=== PATIENT | female | born 1940 | race Hispanic/Latino ===

== ENCOUNTER 2016-12-27 09:32 | Outpatient (CLI) | payer MEDICAID, MEDICARE ==
[2016-12-27 10:26] LABS: #Basophils 0.1 thou/uL (0.0-0.2); #Eosinphils 0.5 thou/uL (0.0-0.7); #Lymphocytes 3.3 thou/uL (1.20-3.40); #Monocytes 0.5 thou/uL (0.11-0.59); #Neutrophils 4.2 thou/uL (1.40-6.50); %Basophils 0.9 % (0.0-1.0); %Eosinophils 5.6 % (0.0-10.0); %Lymphocytes 38.3 % (21.0-51.0); %Monocytes 6.2 % (0.0-10.0); %Neutrophils 49.1 % (42.0-75.0); Hemoglobin 11.8 g/dL (12.0-16.0); Mean Corpuscular Hemoglobin 27.6 pg (27.0-31.0); Mean Corpuscular Volume 83.4 fl (81.0-99.0); Mean Platelet Volume 7.6 fL (7.4-10.4); Platelet Count 254 thou/uL (130-400); RBC Distribution Width 12.3 % (11.5-14.5); Red Blood Cell (RBC) Count 4.29 mill/uL (4.20-5.40); White Blood Cell (WBC) Count 8.6 thou/uL (4.8-10.8)
[2016-12-27 10:35] LABS: Hemoglobin A1c 12.2 % (4.0-6.0)
[2016-12-27 10:43] LABS: ALT (SGPT) 27 U/L (0-55); AST (SGOT) 20 U/L (5-34); Albumin 3.4 g/dL (3.4-4.8); Alkaline Phosphatase 99 U/L (40-150); Anion Gap 12 mmol/L (10-20); BUN (Urea Nitrogen) 21 mg/dL (9.8-20.1); Bilirubin, Total 0.4 mg/dL (0.2-1.2); Calc. Creatinine Clearance 0 mL/min (70-130); Calcium 9.4 mg/dL (7.8-10.44); Carbon Dioxide 29 mmol/L (23-31); Cardiac Risk 3.5 (Less than 4.5); Chloride 101 mmol/L (98-107); Cholesterol 135 mg/dL (< 200 Desired); Estimated GFR-MDRD 65; Globulin 3.5 g/dL (2.4-3.5); HDL Cholesterol 39 mg/dL (>60 Neg Risk); LDL Cholesterol, Calculated 79 mg/dL; Potassium 3.7 mmol/L (3.5-5.1); Protein, Total 6.9 g/dL (5.8-8.1); Sodium 138 mmol/L (136-145); Triglycerides 87 mg/dL (Less than 150)
[2016-12-27 11:07] LABS: Free T4 (Free Thyroxine) 1.15 ng/dL (0.70-1.48); Thyroid Stimulating Hormone 0.8573 uIU/mL (0.35-4.94)
[2016-12-27 11:29] LABS: Glucose 57 mg/dL (83-110)
== END 2016-12-27 09:33 | disposition home or self-care (01) ==
LOC: NAV SJFMSP 09:32
PROVIDERS: ATTEND Family Medicine
DX: E11.8 Type 2 diabetes mellitus with unspecified complications (principal); D64.9 Anemia, unspecified; E11.40 Type 2 diabetes mellitus with diabetic neuropathy, unspecified; J44.9 Chronic obstructive pulmonary disease, unspecified; I10 Essential (primary) hypertension
CPT/HCPCS: 80053; 80061; 83036; 84439; 84443; 85025

== ENCOUNTER 2017-03-12 17:16 | Inpatient (IN) | payer MEDICARE, MEDICAID ==
[2017-03-12] MEDS ORDERED: Dextrose 5% in Water 1,000 ML IV PRN (19:12)
[2017-03-12] MEDS ORDERED: Non-Formulary Item 1 EACH (Budesonide-Formoterol [Symbicort 160-4.5] 1 PUFF) INH PRN (21:32)
[2017-03-12] MEDS ORDERED: PROVENTIL INHALER 6.7 G (200 INHALATIONS) INH PRN (21:32)
[2017-03-12] MEDS ORDERED: Mometasone/Formoterol 60 PUFF AER INH PRN (21:41)
[2017-03-12] MEDS: HYDROcodone/Acetaminophen 7.5/325 mg Tablet PO PRN (22:09)
[2017-03-12] MEDS ORDERED: Melatonin 3 MG TAB PO SCH (22:15)
[2017-03-13] MEDS: Levothyroxine Sodium 150 MCG TAB PO SCH (05:26)
[2017-03-13] MEDS: HumaLOG 300 UNITS/3 ML VIAL SC PRN ×2 (05:31→11:47)
[2017-03-13 05:56] LABS: #Basophils 0.1 thou/uL (0.0-0.2); #Eosinphils 0.3 thou/uL (0.0-0.7); #Lymphocytes 2.7 thou/uL (1.20-3.40); #Monocytes 0.7 thou/uL (0.11-0.59); #Neutrophils 5.4 thou/uL (1.40-6.50); %Basophils 1.2 % (0.0-1.0); %Eosinophils 3.8 % (0.0-10.0); %Lymphocytes 29.7 % (21.0-51.0); %Monocytes 7.1 % (0.0-10.0); %Neutrophils 58.3 % (42.0-75.0); Hemoglobin 10.3 g/dL (12.0-16.0); Mean Corpuscular HGB CONC 31.2 g/dL (32.0-36.0); Mean Corpuscular Hemoglobin 25.9 pg (27.0-31.0); Mean Corpuscular Volume 82.8 fl (81.0-99.0); Platelet Count 296 thou/uL (130-400); RBC Distribution Width 12.3 % (11.5-14.5); Red Blood Cell (RBC) Count 3.98 mill/uL (4.20-5.40); White Blood Cell (WBC) Count 9.2 thou/uL (4.8-10.8)
[2017-03-13 05:59] LABS: Anion Gap 16 mmol/L (10-20); BUN (Urea Nitrogen) 16 mg/dL (9.8-20.1); Calc. Creatinine Clearance 100 mL/min (70-130); Calcium 9.4 mg/dL (7.8-10.44); Carbon Dioxide 28 mmol/L (23-31); Chloride 97 mmol/L (98-107); Estimated GFR-MDRD 58; Glucose 239 mg/dL (83-110); Potassium 4.7 mmol/L (3.5-5.1); Sodium 136 mmol/L (136-145)
[2017-03-13 06:07] LABS: Hemoglobin A1c 9.8 % (4.0-6.0)
[2017-03-13] MEDS: HYDROcodone/Acetaminophen 7.5/325 mg Tablet PO PRN ×3 (07:39→20:10)
[2017-03-13] MEDS: Escitalopram Oxalate 10 mg Tablet PO SCH (08:35)
[2017-03-13] MEDS: Famotidine 20 MG TAB PO SCH ×2 (08:35→20:12)
[2017-03-13] MEDS: Insulin NPH/Reg Insulin Hm 300 UNITS/3 ML VIAL SC SCH ×2 (08:35→19:38)
[2017-03-13] MEDS: Furosemide 40 MG TAB PO SCH (08:35)
[2017-03-13] MEDS: Lisinopril 5 MG TAB PO SCH (08:36)
[2017-03-13] MEDS: rOPINIRole HCl 0.5 MG TAB PO SCH ×2 (08:37→20:11)
[2017-03-13] MEDS: Pregabalin 100 MG CAP PO SCH ×2 (08:37→20:10)
[2017-03-13] MEDS ORDERED: Ferrous Sulfate 325 MG TAB PO SCH (09:00)
[2017-03-13] MEDS ORDERED: Carvedilol 25 MG TAB PO SCH (09:00)
[2017-03-13] MEDS ORDERED: Potassium Chloride 10 MEQ TAB PO SCH (09:00)
[2017-03-13] MEDS ORDERED: Milk Of Magnesia 30 ML UDCUP PO PRN (13:45)
[2017-03-13] MEDS ORDERED: Bisacodyl 10 MG SUPP PR PRN (13:46)
[2017-03-13] MEDS: Carvedilol 25 MG TAB PO SCH (16:51)
[2017-03-13] MEDS: Atorvastatin Calcium 10 MG TAB PO SCH (20:12)
[2017-03-13] MEDS: Melatonin 3 MG TAB PO SCH (20:12)
--- NOTE | 2017-03-13 21:30 | HP ---
DATE OF ADMISSION: 03/12/2017 CHIEF COMPLAINT: Right reverse shoulder arthroplasty for physical therapy. BRIEF HISTORY: This is a 77-year-old overweight female who was admitted to [facility] for a right reverse shoulder arthroplasty. She underwent a surgical procedure on 03/06/2017 t his was due to rotator cuff tear arthropathy. Procedure went off well. She apparently did have an episode of confusion and slurred speech and she was evaluated. She was noticed to have a right lowe r lobe pneumonia on a CT scan of her chest, the brain CT showed areas of gliosis of the cerebral hem isphere, age indeterminate. They recommended an MRI which I do not see done. Carotid Doppler shows no significant stenosis. Echocardiogram report is pending. She has been transferred here for cont inued therapy. Currently, she denies any complaints. She denies any chest pain or shortness of barbi ath. She is on nectar thick liquids. PAST MEDICAL HISTORY: 1. Hypertension. 2. Dyslipidemia. 3. Hypothyroidism. 4. Diabetes mellitus type 2. 5. Morbid obesity. 6. Degenerative joint disease. 7. Deconditioning. PAST SURGICAL HISTORY: 1. Lumbar spine surgery. 2. Bilateral hand surgery. 3. Thyroidectomy. 4. Recent right reverse shoulder arthroplasty. ALLERGIES: CODEINE. CURRENT MEDICATIONS: She has been admitted here on the following medications: Tylenol 500 mg q.6 h ours p.r.n., Dequincy 7.5/325 1-2 tablets q.6 hours p.r.n., Elavil 100 mg at night, Norvasc 5 mg b.i.d. , aspirin 81 daily, Lipitor 10 daily, carvedilol 25 b.i.d. Vitamin D3 5000 international units daily , Lexapro 10 mg daily, Pepcid 20 b.i.d., Lasix 40 mg daily, and 70/30 insulin 46 units subcutaneousl y b.i.d., Levaquin 750 mg daily, Levoxyl 150 mcg daily, lisinopril 2.5 mg daily, melatonin 9 mg christina y, Dulera 1 puff b.i.d., potassium 10 mEq daily, Pregabalin 100 mg b.i.d., Requip 0.5 mg b.i.d. ALLERGIES: CODEINE. FAMILY HISTORY: Noncontributory. PSYCHOSOCIAL HISTORY: No documented tobacco, alcohol or IV drug abuse. REVIEW OF SYSTEMS: Cardiovascular: Denies any chest pain, shortness of breath, palpitations, parox ysmal nocturnal dyspnea, orthopnea, pedal edema. Respiratory: Denies any chronic cough, expectorat ion or pleuritic type chest pain. Gastrointestinal: Denies any nausea, vomiting, diarrhea, constip ation, hematemesis, melena, hematochezia. Genitourinary: Denies any frequency, urgency, dysuria or hematuria. [employer]: No focal numbness, weakness, fainting spells. She has been having some speech, s wallowing issues and is on nectar thick liquid. She did have an episode consistent with TIA. We wi ll also schedule her for an MRI on an outpatient basis for the age indeterminate multiple areas of g liosis. PHYSICAL EXAMINATION: GENERAL: This is a pleasant 77-year-old overweight female resting comfortably in no acute distress. She responds appropriately to simple questions. She is able to recognize me. VITAL SIGNS: She is afebrile. Heart rate is 75, respirations 18, oxygen saturation is 93%, blood p ressure is 145/64. HEENT: Normocephalic, atraumatic. Pupils equal and reactive to light and accommodation. NECK: No JVD, thyromegaly, cervical adenopathy, throat exudates or carotid bruits. CARDIOVASCULAR: S1, S2, plus rate and rhythm regular. RESPIRATORY: Normal vesicular breath sounds heard in all lung joseph. ABDOMEN: Soft, obese, nontender. Bowel sounds heard in all quadrants. EXTREMITIES: Without cyanosis or clubbing. CENTRAL NERVOUS SYSTEM: Grossly nonfocal. LABORATORY VALUES: From this morning shows a white count of 9.2, H\T\H is 10.3 and 33. Sodium 136, potassium 4.7, BUN and creatinine 16 and 0.94, blood sugars are 151, 226 and 222, glycohemoglobin i s 9.8. IMPRESSION: 1. Status post right reverse shoulder arthroplasty. 2. Diabetes mellitus type 2, not well controlled. 3. Hypertension. 4. Dyslipidemia. 5. Hypothyroidism. 6. Morbid obesity. 7. Deconditioning. 8. Possible asthma. 9. Multiple areas of gliosis. PLAN: 1. Continue current medications. 2. A 1800 calorie heart healthy ADA diet. 3. Accu-Cheks with sliding scale coverage. 4. Deep venous thrombosis and stress ulcer prophylaxis. 5. Decubitus precautions. 6. Routine laboratory values. 7. Physical therapy. 8. Speech therapy. 9. No family at the bedside.
[2017-03-14] MEDS: Levothyroxine Sodium 150 MCG TAB PO SCH (05:16)
[2017-03-14] MEDS: HumaLOG 300 UNITS/3 ML VIAL SC PRN ×2 (05:20→12:21)
[2017-03-14] MEDS: HYDROcodone/Acetaminophen 7.5/325 mg Tablet PO PRN ×3 (05:22→15:07)
[2017-03-14] MEDS: Pregabalin 100 MG CAP PO SCH ×2 (09:29→21:15)
[2017-03-14] MEDS: rOPINIRole HCl 0.5 MG TAB PO SCH ×2 (09:31→21:15)
[2017-03-14] MEDS: Lisinopril 5 MG TAB PO SCH (09:32)
[2017-03-14] MEDS: Furosemide 40 MG TAB PO SCH (09:33)
[2017-03-14] MEDS: Potassium Chloride 10 MEQ TAB PO SCH (09:33)
[2017-03-14] MEDS: Ferrous Sulfate 325 MG TAB PO SCH (09:35)
[2017-03-14] MEDS: Escitalopram Oxalate 10 mg Tablet PO SCH (09:35)
[2017-03-14] MEDS: Famotidine 20 MG TAB PO SCH ×2 (09:35→21:13)
[2017-03-14] MEDS: Carvedilol 25 MG TAB PO SCH ×2 (09:35→17:46)
[2017-03-14] MEDS: Insulin NPH/Reg Insulin Hm 300 UNITS/3 ML VIAL SC SCH ×2 (09:36→21:14)
--- NOTE | 2017-03-14 13:32 | PRG ---
DATE OF SERVICE: 03/14/2017 SUBJECTIVE: Ms. Mandel is up in her chair. She denies any complaints. Tolerating therapy. She had a bowel movement. Discussed with nursing and no concerns. OBJECTIVE: VITAL SIGNS: She is afebrile, heart rate is 65, respiration is 18, oxygen saturation is 94%, blood pressure is 158/70. CARDIOVASCULAR: S1, S2 plus. RESPIRATORY: Normal vesicular breath sounds. ABDOMEN: Soft, nontender, obese. Bowel sounds heard in all quadrants. EXTREMITIES: Right arm in a sling. Trace edema. LABORATORY VALUES: Blood sugars are 222, 70, 106, 205 168. Hemoglobin is 9.8. IMPRESSION: 1. Status post right total shoulder arthroplasty. 2. Diabetes mellitus type 2. 3. Obesity. 4. Hypothyroidism. 5. Improving deconditioning. 6. Longstanding history of noncompliance. 7. Hypertension. 8. Dyslipidemia. PLAN: 1. Continue current medications. 2. 1800 calorie heart healthy diet. 3. DVT and stress ulcer prophylaxis. 4. Decubitus precautions. 5. Accu-Cheks with sliding scale coverage. 6. Shoulder with orthopedic precautions. 7. Therapy. 8. Routine laboratory values. 9. No family at the bedside.
[2017-03-14] MEDS: Atorvastatin Calcium 10 MG TAB PO SCH (21:13)
[2017-03-14] MEDS: Melatonin 3 MG TAB PO SCH (21:14)
[2017-03-15] MEDS ORDERED: Sodium Chloride 0.9% 10 ML ONE ×2 (02:24→02:37)
[2017-03-15] MEDS: Dextrose 50% Abboject 50 ML SYRINGE IVP PRN (02:26)
[2017-03-15 02:58] LABS: Glucose 58 mg/dL (83-110)
[2017-03-15] MEDS: Levothyroxine Sodium 150 MCG TAB PO SCH (05:15)
[2017-03-15] MEDS: Potassium Chloride 10 MEQ TAB PO SCH (08:00)
[2017-03-15] MEDS: Ferrous Sulfate 325 MG TAB PO SCH (08:00)
[2017-03-15] MEDS: Carvedilol 25 MG TAB PO SCH ×2 (08:00→17:45)
[2017-03-15] MEDS: Insulin NPH/Reg Insulin Hm 300 UNITS/3 ML VIAL SC SCH ×2 (09:55→21:01)
[2017-03-15] MEDS: Escitalopram Oxalate 10 mg Tablet PO SCH ×2 (09:56→12:11)
[2017-03-15] MEDS: Furosemide 40 MG TAB PO SCH (09:58)
[2017-03-15] MEDS: rOPINIRole HCl 0.5 MG TAB PO SCH ×2 (09:58→20:58)
[2017-03-15] MEDS: Famotidine 20 MG TAB PO SCH ×3 (09:58→20:59)
[2017-03-15] MEDS: Pregabalin 100 MG CAP PO SCH ×3 (10:00→21:01)
[2017-03-15] MEDS: Lisinopril 5 MG TAB PO SCH (10:00)
[2017-03-15] MEDS: HYDROcodone/Acetaminophen 7.5/325 mg Tablet PO PRN ×2 (11:43→22:12)
[2017-03-15] MEDS: HumaLOG 300 UNITS/3 ML VIAL SC PRN (11:56)
[2017-03-15] MEDS ORDERED: Escitalopram Oxalate 10 mg Tablet PO SCH (12:00)
[2017-03-15] MEDS ORDERED: Pregabalin 100 MG CAP PO SCH (12:00)
[2017-03-15] MEDS ORDERED: Famotidine 20 MG TAB PO SCH (12:00)
[2017-03-15] MEDS ORDERED: PROVENTIL INHALER 6.7 G (200 INHALATIONS) INH PRN (13:20)
--- NOTE | 2017-03-15 13:31 | PRG ---
DATE OF SERVICE: 03/15/2017 SUBJECTIVE: Ms. Mandel is doing well. Denies any complaints. She says that she was having some wheezing this morning. She was on Symbicort at home. She has Dulera ordered, but for some reason i t was ordered p.r.n., I will change it to scheduled. OBJECTIVE: VITAL SIGNS: She is afebrile, heart rate is 74, respirations 18, oxygen saturation 93%, blood press ure 144/65. CARDIOVASCULAR: S1, S2 plus. RESPIRATORY: Normal vesicular breath sounds. ABDOMEN: Soft, obese, nontender, bowel sounds heard in all quadrants. EXTREMITIES: Without cyanosis or clubbing. She did also have an episode of hypoglycemia and her NPH at night, has been decreased to 20. IMPRESSION: 1. Right shoulder arthroplasty. 2. Chronic obstructive pulmonary disease. 3. Obesity. 4. Diabetes mellitus. 5. Hypertension. 6. Dyslipidemia. 7. Hypothyroidism. PLAN: 1. Change Dulera to scheduled. 2. DuoNeb p.r.n. 3. Deep venous thrombosis and stress ulcer prophylaxis. 4. Decubitus precautions. 5. Continue therapy. 6. Monitor blood sugars with reduced dose of NPH at night. 7. Discussed with the patient in detail and all questions answered.
[2017-03-15 15:56] LABS: CKMB 1.8 ng/mL (0-6.6); Troponin I Less than 0.010 ng/mL (< 0.028)
--- NOTE | 2017-03-15 16:05 | RAD ---
SINGLE VIEW OF CHEST: Date: 03/15/17 COMPARISON: 03/06/07. HISTORY: Chest pain. FINDINGS: Single view of the chest shows an enlarged but stable cardiomediastinal silhouette. The patient is s tatus post right shoulder arthroplasty. There is no evidence of consolidation, mass, pneumothorax, o r pleural effusion. Degenerative changes are seen in the spine. IMPRESSION: No evidence of acute cardiopulmonary disease. POS: [facility]
[2017-03-15] MEDS ORDERED: Mometasone/Formoterol 60 PUFF AER INH SCH (18:45)
[2017-03-15] MEDS: Atorvastatin Calcium 10 MG TAB PO SCH (20:58)
[2017-03-15] MEDS: Melatonin 3 MG TAB PO SCH (20:58)
[2017-03-15 23:23] LABS: CKMB 1.6 ng/mL (0-6.6); Troponin I Less than 0.010 ng/mL (< 0.028)
[2017-03-16] MEDS: Mometasone/Formoterol 60 PUFF AER INH SCH ×3 (02:52→17:48)
[2017-03-16] MEDS: HYDROcodone/Acetaminophen 7.5/325 mg Tablet PO PRN ×2 (02:53→15:31)
[2017-03-16] MEDS: Levothyroxine Sodium 150 MCG TAB PO SCH (05:51)
[2017-03-16 06:25] LABS: CKMB 1.3 ng/mL (0-6.6); Troponin I Less than 0.010 ng/mL (< 0.028)
[2017-03-16] MEDS: Lisinopril 5 MG TAB PO SCH (08:20)
[2017-03-16] MEDS: Famotidine 20 MG TAB PO SCH ×2 (08:21→20:37)
[2017-03-16] MEDS: Escitalopram Oxalate 10 mg Tablet PO SCH (08:21)
[2017-03-16] MEDS: rOPINIRole HCl 0.5 MG TAB PO SCH ×2 (08:21→20:37)
[2017-03-16] MEDS: Furosemide 40 MG TAB PO SCH (08:22)
[2017-03-16] MEDS: Ferrous Sulfate 325 MG TAB PO SCH (08:22)
[2017-03-16] MEDS: Potassium Chloride 10 MEQ TAB PO SCH (08:22)
[2017-03-16] MEDS: Pregabalin 100 MG CAP PO SCH ×2 (08:22→20:38)
[2017-03-16] MEDS: Carvedilol 25 MG TAB PO SCH ×2 (08:22→17:48)
[2017-03-16] MEDS: Insulin NPH/Reg Insulin Hm 300 UNITS/3 ML VIAL SC SCH ×2 (08:24→20:39)
--- NOTE | 2017-03-16 12:23 | PRG ---
DATE OF SERVICE: 03/16/2017 SUBJECTIVE: Ms. Mandel is doing well. She did not have any low blood sugars last night. She did have an episode of chest pain when she was ambulating. Her EKG, chest x-ray and cardiac enzymes marshall ve been negative so far. The pain resolved instantaneously. She denies any other concerns. She wa s started on her routine long-acting beta agonist steroid inhalation for some reason it was ordered p.r.n. Currently, she denies any concerns or questions. OBJECTIVE: VITAL SIGNS: She is afebrile, heart rate is 66, respirations are 20, oxygen saturation is 93%, bloo d pressure 145/66. CARDIOVASCULAR: S1, S2 plus. RESPIRATORY: Normal vesicular breath sounds. ABDOMEN: Soft, obese, nontender, bowel sounds heard in all quadrants. EXTREMITIES: Without cyanosis or clubbing. The right arm is in a sling. LABORATORY VALUES: Blood sugars are 309, 102, 87, 86. Three sets of cardiac enzymes negative. Risa st x-ray is negative. IMPRESSION: 1. Atypical chest pain with negative workup. 2. Asthma, currently on routine steroid combo. 3. Diabetes mellitus type 2. 4. Hypertension. 5. Hypothyroidism. 6. Obesity. 7. Degenerative joint disease, status post right shoulder arthroplasty for rotator cuff injury. PLAN: 1. Continue physical therapy and OT with orthopedic restrictions. 2. Monitor blood sugar. 3. Breathing treatments as needed. Meter dose inhalation as needed. 4. Continue routine Dulera. 5. Accu-Cheks and sliding scale coverage. 6. Deep venous thrombosis and stress ulcer prophylaxis. 7. Decubitus precautions. 8. Dr. Weir nurse infection control this weekend.
[2017-03-16 15:12] LABS: CKMB 1.2 ng/mL (0-6.6); Troponin I Less than 0.010 ng/mL (< 0.028)
[2017-03-16] MEDS: Atorvastatin Calcium 10 MG TAB PO SCH (20:37)
[2017-03-16] MEDS: Melatonin 3 MG TAB PO SCH (20:37)
[2017-03-17] MEDS: Levothyroxine Sodium 150 MCG TAB PO SCH (05:38)
[2017-03-17] MEDS: Mometasone/Formoterol 60 PUFF AER INH SCH ×2 (05:38→18:06)
[2017-03-17] MEDS: Carvedilol 25 MG TAB PO SCH ×2 (08:38→17:06)
[2017-03-17] MEDS: Potassium Chloride 10 MEQ TAB PO SCH (08:38)
[2017-03-17] MEDS: Ferrous Sulfate 325 MG TAB PO SCH (08:38)
[2017-03-17] MEDS: Famotidine 20 MG TAB PO SCH ×2 (08:39→20:57)
[2017-03-17] MEDS: Escitalopram Oxalate 10 mg Tablet PO SCH (08:39)
[2017-03-17] MEDS: Insulin NPH/Reg Insulin Hm 300 UNITS/3 ML VIAL SC SCH ×2 (08:40→20:57)
[2017-03-17] MEDS: Furosemide 40 MG TAB PO SCH (08:40)
[2017-03-17] MEDS: Lisinopril 5 MG TAB PO SCH (08:43)
[2017-03-17] MEDS: Pregabalin 100 MG CAP PO SCH ×2 (08:44→20:56)
[2017-03-17] MEDS: rOPINIRole HCl 0.5 MG TAB PO SCH ×2 (08:45→20:56)
--- NOTE | 2017-03-17 10:43 | PRG ---
DATE OF SERVICE: 03/17/[address] Peterson Vu. SUBJECTIVE: The patient is a 77-year-old white female admitted to the skilled unit for rehabilitati on after a reversed right shoulder placement. She has done well with no pain in her shoulder at res t, but with inability to maintain ADLs and to transport as of yet. She is eating well with no short ness of breath or chest pain. For the last 24 hours, she did have atypical chest pain 2 days ago wi th no recurrence. OBJECTIVE: VITAL SIGNS: Shows her blood pressure today is 164/71, temperature 96, pulse 71, respirations 18, O 2 saturation is 95%. LUNGS: Clear. CARDIAC EXAMINATION: Shows regular rhythm. Accu-Cheks were labile, but fairly well improved going from 81-214. EXTREMITIES: Right shoulder shows no tenderness at rest and some tenderness upon movement cooperati ng with therapy. ASSESSMENT: Resolving right shoulder replacement, resolved atypical chest pain, stable asthma, no w heezing, stable diabetes, stable hypertension. PLAN: Continue PT, OT. Continue to monitor Accu-Cheks. Continue breathing treatments as needed. Continue to monitor for atypical chest pain. Continue DVT and stress ulcer prophylaxis. Continue u p in the chair as much as possible.
[2017-03-17] MEDS: HYDROcodone/Acetaminophen 7.5/325 mg Tablet PO PRN (10:56)
[2017-03-17] MEDS: HumaLOG 300 UNITS/3 ML VIAL SC PRN (11:36)
[2017-03-17] MEDS: Melatonin 3 MG TAB PO SCH (20:56)
[2017-03-17] MEDS: Atorvastatin Calcium 10 MG TAB PO SCH (20:56)
[2017-03-18] MEDS: HYDROcodone/Acetaminophen 7.5/325 mg Tablet PO PRN ×2 (00:55→08:46)
[2017-03-18] MEDS: Mometasone/Formoterol 60 PUFF AER INH SCH ×2 (05:40→20:45)
[2017-03-18] MEDS: Levothyroxine Sodium 150 MCG TAB PO SCH (05:40)
[2017-03-18] MEDS: Potassium Chloride 10 MEQ TAB PO SCH (08:42)
[2017-03-18] MEDS: Ferrous Sulfate 325 MG TAB PO SCH (08:42)
[2017-03-18] MEDS: Carvedilol 25 MG TAB PO SCH ×2 (08:42→20:45)
[2017-03-18] MEDS: Escitalopram Oxalate 10 mg Tablet PO SCH (08:43)
[2017-03-18] MEDS: Famotidine 20 MG TAB PO SCH ×2 (08:43→20:51)
[2017-03-18] MEDS: Furosemide 40 MG TAB PO SCH (08:43)
[2017-03-18] MEDS: Insulin NPH/Reg Insulin Hm 300 UNITS/3 ML VIAL SC SCH ×2 (08:44→20:53)
[2017-03-18] MEDS: Lisinopril 5 MG TAB PO SCH (08:44)
[2017-03-18] MEDS: Pregabalin 100 MG CAP PO SCH ×2 (08:45→20:52)
[2017-03-18] MEDS: rOPINIRole HCl 0.5 MG TAB PO SCH ×2 (08:46→20:52)
--- NOTE | 2017-03-18 09:19 | PRG ---
DATE OF SERVICE: 03/18/[address] Peterson Vu. SUBJECTIVE: The patient lying in bed, feels well with minimal pain in her shoulder, was up in chair several hours yesterday. She has had a brace on her shoulder off last night and then having good b owel movements, eating well. No shortness of breath. OBJECTIVE: Incision appeared to be clean and dry. Vital signs show blood pressure 150/67, pulse 73 , temperature 98, O2 sats 94%. Lungs are clear. Cardiac examination shows regular rhythm. ASSESSMENT: 1. Degenerative joint disease status post right shoulder arthroplasty. 2. Persistent asthma, controlled on steroid inhalers. 3. Type 2 diabetes with fair control with Accu-Cheks ranging from 79-230. 4. Hypertension, controlled to goal. PLAN: 1. Continue PT, OT while wearing splint and with restrictions. 2. Continue Accu-Cheks. 3. Continue routine steroid bronchodilator inhaler. 4. Continue DVT and stress ulcer prophylaxis.
[2017-03-18] MEDS: Melatonin 3 MG TAB PO SCH (20:51)
[2017-03-18] MEDS: Atorvastatin Calcium 10 MG TAB PO SCH (20:51)
[2017-03-19] MEDS: Levothyroxine Sodium 150 MCG TAB PO SCH (06:01)
[2017-03-19] MEDS: Mometasone/Formoterol 60 PUFF AER INH SCH ×2 (06:02→17:57)
[2017-03-19] MEDS: Carvedilol 25 MG TAB PO SCH ×2 (08:31→17:57)
[2017-03-19] MEDS: Lisinopril 5 MG TAB PO SCH (08:31)
[2017-03-19] MEDS: Escitalopram Oxalate 10 mg Tablet PO SCH (08:31)
[2017-03-19] MEDS: rOPINIRole HCl 0.5 MG TAB PO SCH ×2 (08:31→21:03)
[2017-03-19] MEDS: Ferrous Sulfate 325 MG TAB PO SCH (08:31)
[2017-03-19] MEDS: Furosemide 40 MG TAB PO SCH (08:32)
[2017-03-19] MEDS: Famotidine 20 MG TAB PO SCH ×2 (08:32→21:01)
[2017-03-19] MEDS: Potassium Chloride 10 MEQ TAB PO SCH (08:32)
[2017-03-19] MEDS: Pregabalin 100 MG CAP PO SCH ×2 (08:32→21:02)
[2017-03-19] MEDS: HYDROcodone/Acetaminophen 7.5/325 mg Tablet PO PRN ×2 (08:33→17:57)
[2017-03-19] MEDS: Insulin NPH/Reg Insulin Hm 300 UNITS/3 ML VIAL SC SCH ×2 (08:34→21:02)
[2017-03-19] MEDS: Dextrose 50% Abboject 50 ML SYRINGE IVP PRN (16:23)
--- NOTE | 2017-03-19 17:38 | PRG ---
DATE OF SERVICE: 03/19/2017 SUBJECTIVE: Ms. Mandel is doing well. Denies any complaints. Her right arm swelling is much imp roved. She is working with therapy. She denies any concerns or questions. She states that she has been taking creatinine level for more than 20 years and really does not want to change. She takes it to help with her anxiety. She does not want to try any other medicines. OBJECTIVE: VITAL SIGNS: She is afebrile. Heart rate is 73, respirations are 19 and blood pressure is 158/70. CARDIOVASCULAR SYSTEM: S1 and S2 plus. RESPIRATORY SYSTEM: Normal vesicular breath sounds. ABDOMEN: Soft, obese and nontender. Bowel sounds are heard in all quadrants. EXTREMITIES: Without cyanosis or clubbing. LABORATORY VALUES: Blood sugars are 79, 107, 147 and 195. She did have one low at 6:00 this evenin g at 46. IMPRESSION: 1. Diabetes mellitus type 2. 2. Hypertension. 3. Dyslipidemia. 4. Hypothyroidism. 5. Status post right shoulder arthroplasty. 6. Depression and anxiety. PLAN: 1. Continue physical therapy. 2. Monitor blood sugar. 3. Adjust medications. 4. 1800-calorie heart healthy diet. 5. Deep vein thrombosis and stress ulcer prophylaxis. 6. Decubitus precautions. 7. Routine laboratory values. 8. Physical therapy and occupational therapy.
[2017-03-19] MEDS: Atorvastatin Calcium 10 MG TAB PO SCH (21:01)
[2017-03-19] MEDS: Melatonin 3 MG TAB PO SCH (21:02)
[2017-03-20] MEDS: Mometasone/Formoterol 60 PUFF AER INH SCH ×2 (05:55→17:38)
[2017-03-20] MEDS: Levothyroxine Sodium 150 MCG TAB PO SCH (05:55)
[2017-03-20] MEDS: Famotidine 20 MG TAB PO SCH ×2 (08:44→21:09)
[2017-03-20] MEDS: Carvedilol 25 MG TAB PO SCH ×2 (08:48→17:38)
[2017-03-20] MEDS: Escitalopram Oxalate 10 mg Tablet PO SCH (08:48)
[2017-03-20] MEDS: Potassium Chloride 10 MEQ TAB PO SCH (08:48)
[2017-03-20] MEDS: Ferrous Sulfate 325 MG TAB PO SCH (08:48)
[2017-03-20] MEDS: Furosemide 40 MG TAB PO SCH (08:48)
[2017-03-20] MEDS: Lisinopril 5 MG TAB PO SCH (08:48)
[2017-03-20] MEDS: rOPINIRole HCl 0.5 MG TAB PO SCH ×2 (08:49→21:08)
[2017-03-20] MEDS: Pregabalin 100 MG CAP PO SCH ×2 (08:49→21:07)
[2017-03-20] MEDS: HYDROcodone/Acetaminophen 7.5/325 mg Tablet PO PRN ×2 (08:49→21:08)
[2017-03-20] MEDS: Insulin NPH/Reg Insulin Hm 300 UNITS/3 ML VIAL SC SCH ×2 (08:50→21:05)
[2017-03-20] MEDS ORDERED: Insulin NPH/Reg Insulin Hm 300 UNITS/3 ML VIAL SC SCH ×2 (09:00)
[2017-03-20] MEDS: Atorvastatin Calcium 10 MG TAB PO SCH (21:08)
[2017-03-20] MEDS: Melatonin 3 MG TAB PO SCH (21:09)
[2017-03-21] MEDS: Mometasone/Formoterol 60 PUFF AER INH SCH ×2 (05:56→17:54)
[2017-03-21] MEDS: Levothyroxine Sodium 150 MCG TAB PO SCH (05:56)
[2017-03-21] MEDS: HumaLOG 300 UNITS/3 ML VIAL SC PRN (05:58)
[2017-03-21] MEDS: Carvedilol 25 MG TAB PO SCH ×2 (08:13→16:58)
[2017-03-21] MEDS: Ferrous Sulfate 325 MG TAB PO SCH (08:14)
[2017-03-21] MEDS: Potassium Chloride 10 MEQ TAB PO SCH (08:14)
[2017-03-21] MEDS: Escitalopram Oxalate 10 mg Tablet PO SCH (08:15)
[2017-03-21] MEDS: Furosemide 40 MG TAB PO SCH (08:15)
[2017-03-21] MEDS: Famotidine 20 MG TAB PO SCH ×2 (08:15→20:50)
[2017-03-21] MEDS: Insulin NPH/Reg Insulin Hm 300 UNITS/3 ML VIAL SC SCH ×2 (08:16→20:56)
[2017-03-21] MEDS: Lisinopril 5 MG TAB PO SCH (08:16)
[2017-03-21] MEDS: Pregabalin 100 MG CAP PO SCH ×2 (08:17→20:52)
[2017-03-21] MEDS: rOPINIRole HCl 0.5 MG TAB PO SCH ×2 (08:18→20:51)
[2017-03-21] MEDS: HYDROcodone/Acetaminophen 7.5/325 mg Tablet PO PRN ×2 (17:57→23:57)
[2017-03-21] MEDS: Melatonin 3 MG TAB PO SCH (20:50)
[2017-03-21] MEDS: Atorvastatin Calcium 10 MG TAB PO SCH (20:51)
[2017-03-22] MEDS: Levothyroxine Sodium 150 MCG TAB PO SCH (05:27)
[2017-03-22] MEDS: Mometasone/Formoterol 60 PUFF AER INH SCH ×2 (05:30→18:11)
[2017-03-22 05:47] LABS: Anion Gap 14 mmol/L (10-20); BUN (Urea Nitrogen) 25 mg/dL (9.8-20.1); Calc. Creatinine Clearance 96 mL/min (70-130); Calcium 9.5 mg/dL (7.8-10.44); Carbon Dioxide 30 mmol/L (23-31); Chloride 101 mmol/L (98-107); Estimated GFR-MDRD 55; Glucose 132 mg/dL (83-110); Sodium 141 mmol/L (136-145)
[2017-03-22 05:51] LABS: #Basophils 0.1 thou/uL (0.0-0.2); #Eosinphils 0.6 thou/uL (0.0-0.7); #Lymphocytes 2.5 thou/uL (1.20-3.40); #Monocytes 0.7 thou/uL (0.11-0.59); #Neutrophils 4.3 thou/uL (1.40-6.50); %Basophils 1.2 % (0.0-1.0); %Eosinophils 6.9 % (0.0-10.0); %Monocytes 8.1 % (0.0-10.0); %Neutrophils 52.9 % (42.0-75.0); Mean Corpuscular HGB CONC 31.7 g/dL (32.0-36.0); Mean Corpuscular Hemoglobin 26.4 pg (27.0-31.0); Mean Corpuscular Volume 83.2 fl (81.0-99.0); Mean Platelet Volume 7.2 fL (7.4-10.4); Platelet Count 306 thou/uL (130-400); RBC Distribution Width 12.4 % (11.5-14.5); Red Blood Cell (RBC) Count 3.81 mill/uL (4.20-5.40); White Blood Cell (WBC) Count 8.2 thou/uL (4.8-10.8)
[2017-03-22] MEDS: Carvedilol 25 MG TAB PO SCH ×2 (08:18→16:29)
[2017-03-22] MEDS: Potassium Chloride 10 MEQ TAB PO SCH (08:18)
[2017-03-22] MEDS: Ferrous Sulfate 325 MG TAB PO SCH (08:18)
[2017-03-22] MEDS: Famotidine 20 MG TAB PO SCH ×2 (08:19→21:26)
[2017-03-22] MEDS: Escitalopram Oxalate 10 mg Tablet PO SCH (08:19)
[2017-03-22] MEDS: Lisinopril 5 MG TAB PO SCH (08:20)
[2017-03-22] MEDS: Insulin NPH/Reg Insulin Hm 300 UNITS/3 ML VIAL SC SCH ×2 (08:20→21:27)
[2017-03-22] MEDS: Furosemide 40 MG TAB PO SCH (08:20)
[2017-03-22] MEDS: Pregabalin 100 MG CAP PO SCH ×2 (08:21→21:26)
[2017-03-22] MEDS: rOPINIRole HCl 0.5 MG TAB PO SCH ×2 (08:21→21:25)
[2017-03-22] MEDS: traMADol HCl 50 MG TAB PO PRN (08:22)
[2017-03-22] MEDS: HumaLOG 300 UNITS/3 ML VIAL SC PRN ×2 (11:47→16:55)
[2017-03-22] MEDS: Atorvastatin Calcium 10 MG TAB PO SCH (21:25)
[2017-03-22] MEDS: Melatonin 3 MG TAB PO SCH (21:25)
[2017-03-23] MEDS: HYDROcodone/Acetaminophen 7.5/325 mg Tablet PO PRN ×2 (01:05→09:04)
[2017-03-23] MEDS: Levothyroxine Sodium 150 MCG TAB PO SCH (05:36)
[2017-03-23] MEDS: Mometasone/Formoterol 60 PUFF AER INH SCH ×2 (05:39→18:43)
[2017-03-23] MEDS: Ferrous Sulfate 325 MG TAB PO SCH (08:00)
[2017-03-23] MEDS: Carvedilol 25 MG TAB PO SCH ×2 (08:00→17:43)
[2017-03-23] MEDS: Potassium Chloride 10 MEQ TAB PO SCH (08:00)
[2017-03-23] MEDS: rOPINIRole HCl 0.5 MG TAB PO SCH ×2 (09:00→20:48)
[2017-03-23] MEDS: Escitalopram Oxalate 10 mg Tablet PO SCH (09:01)
[2017-03-23] MEDS: Furosemide 40 MG TAB PO SCH (09:01)
[2017-03-23] MEDS: Famotidine 20 MG TAB PO SCH ×2 (09:01→20:48)
[2017-03-23] MEDS: Lisinopril 5 MG TAB PO SCH (09:01)
[2017-03-23] MEDS: Pregabalin 100 MG CAP PO SCH ×2 (09:03→20:48)
[2017-03-23] MEDS: Insulin NPH/Reg Insulin Hm 300 UNITS/3 ML VIAL SC SCH ×2 (09:15→20:49)
[2017-03-23] MEDS: Melatonin 3 MG TAB PO SCH (20:47)
[2017-03-23] MEDS: Atorvastatin Calcium 10 MG TAB PO SCH (20:47)
[2017-03-24] MEDS: HYDROcodone/Acetaminophen 7.5/325 mg Tablet PO PRN ×3 (05:33→20:23)
[2017-03-24] MEDS: Levothyroxine Sodium 150 MCG TAB PO SCH (05:33)
[2017-03-24] MEDS: Mometasone/Formoterol 60 PUFF AER INH SCH ×2 (05:47→17:09)
[2017-03-24] MEDS: Carvedilol 25 MG TAB PO SCH ×2 (08:08→17:05)
[2017-03-24] MEDS: Ferrous Sulfate 325 MG TAB PO SCH (08:11)
[2017-03-24] MEDS: Potassium Chloride 10 MEQ TAB PO SCH (08:11)
[2017-03-24] MEDS: Lisinopril 5 MG TAB PO SCH (09:07)
[2017-03-24] MEDS: Insulin NPH/Reg Insulin Hm 300 UNITS/3 ML VIAL SC SCH ×2 (09:08→20:15)
[2017-03-24] MEDS: Escitalopram Oxalate 10 mg Tablet PO SCH (09:12)
[2017-03-24] MEDS: Famotidine 20 MG TAB PO SCH ×2 (09:12→20:18)
[2017-03-24] MEDS: rOPINIRole HCl 0.5 MG TAB PO SCH ×2 (09:12→20:19)
[2017-03-24] MEDS: Furosemide 40 MG TAB PO SCH (09:12)
[2017-03-24] MEDS: Pregabalin 100 MG CAP PO SCH ×2 (09:13→20:22)
[2017-03-24] MEDS: HumaLOG 300 UNITS/3 ML VIAL SC PRN ×2 (12:07→17:05)
[2017-03-24] MEDS: Atorvastatin Calcium 10 MG TAB PO SCH (20:19)
[2017-03-24] MEDS: Melatonin 3 MG TAB PO SCH (20:19)
[2017-03-25] MEDS: Mometasone/Formoterol 60 PUFF AER INH SCH ×2 (06:11→18:12)
[2017-03-25] MEDS: Levothyroxine Sodium 150 MCG TAB PO SCH (06:11)
[2017-03-25] MEDS: rOPINIRole HCl 0.5 MG TAB PO SCH ×2 (08:56→20:58)
[2017-03-25] MEDS: Carvedilol 25 MG TAB PO SCH ×2 (08:57→17:58)
[2017-03-25] MEDS: Famotidine 20 MG TAB PO SCH ×2 (08:57→20:55)
[2017-03-25] MEDS: Ferrous Sulfate 325 MG TAB PO SCH (08:57)
[2017-03-25] MEDS: Lisinopril 5 MG TAB PO SCH (08:57)
[2017-03-25] MEDS: Furosemide 40 MG TAB PO SCH (08:57)
[2017-03-25] MEDS: Escitalopram Oxalate 10 mg Tablet PO SCH (08:57)
[2017-03-25] MEDS: Potassium Chloride 10 MEQ TAB PO SCH (08:58)
[2017-03-25] MEDS: Pregabalin 100 MG CAP PO SCH ×2 (08:59→20:55)
[2017-03-25] MEDS: HYDROcodone/Acetaminophen 7.5/325 mg Tablet PO PRN ×2 (09:00→20:53)
[2017-03-25] MEDS: Insulin NPH/Reg Insulin Hm 300 UNITS/3 ML VIAL SC SCH ×2 (09:01→20:59)
[2017-03-25] MEDS: HumaLOG 300 UNITS/3 ML VIAL SC PRN (12:32)
[2017-03-25] MEDS: Melatonin 3 MG TAB PO SCH (20:54)
[2017-03-25] MEDS: Atorvastatin Calcium 10 MG TAB PO SCH (20:55)
[2017-03-26] MEDS: Levothyroxine Sodium 150 MCG TAB PO SCH (05:43)
[2017-03-26] MEDS: Mometasone/Formoterol 60 PUFF AER INH SCH ×2 (05:43→18:13)
[2017-03-26] MEDS: Carvedilol 25 MG TAB PO SCH ×2 (08:50→17:01)
[2017-03-26] MEDS: Ferrous Sulfate 325 MG TAB PO SCH (08:50)
[2017-03-26] MEDS: Famotidine 20 MG TAB PO SCH ×2 (08:51→20:08)
[2017-03-26] MEDS: Furosemide 40 MG TAB PO SCH (08:51)
[2017-03-26] MEDS: Potassium Chloride 10 MEQ TAB PO SCH (08:51)
[2017-03-26] MEDS: Escitalopram Oxalate 10 mg Tablet PO SCH (08:51)
[2017-03-26] MEDS: Pregabalin 100 MG CAP PO SCH ×2 (08:52→20:07)
[2017-03-26] MEDS: Lisinopril 5 MG TAB PO SCH (08:52)
[2017-03-26] MEDS: rOPINIRole HCl 0.5 MG TAB PO SCH ×2 (08:53→20:07)
[2017-03-26] MEDS: HYDROcodone/Acetaminophen 7.5/325 mg Tablet PO PRN ×2 (08:58→20:08)
[2017-03-26] MEDS: Insulin NPH/Reg Insulin Hm 300 UNITS/3 ML VIAL SC SCH ×2 (08:59→20:09)
[2017-03-26] MEDS: HumaLOG 300 UNITS/3 ML VIAL SC PRN (11:19)
[2017-03-26] MEDS: Melatonin 3 MG TAB PO SCH (20:07)
[2017-03-26] MEDS: Atorvastatin Calcium 10 MG TAB PO SCH (20:08)
[2017-03-27] MEDS: Mometasone/Formoterol 60 PUFF AER INH SCH ×2 (06:31→18:01)
[2017-03-27] MEDS: Levothyroxine Sodium 150 MCG TAB PO SCH (06:31)
[2017-03-27] MEDS: Ferrous Sulfate 325 MG TAB PO SCH (08:35)
[2017-03-27] MEDS: Carvedilol 25 MG TAB PO SCH ×2 (08:35→17:02)
[2017-03-27] MEDS: Potassium Chloride 10 MEQ TAB PO SCH (08:35)
[2017-03-27] MEDS: Famotidine 20 MG TAB PO SCH ×2 (08:36→20:15)
[2017-03-27] MEDS: Escitalopram Oxalate 10 mg Tablet PO SCH (08:36)
[2017-03-27] MEDS: Insulin NPH/Reg Insulin Hm 300 UNITS/3 ML VIAL SC SCH ×2 (08:37→20:15)
[2017-03-27] MEDS: Furosemide 40 MG TAB PO SCH (08:37)
[2017-03-27] MEDS: Pregabalin 100 MG CAP PO SCH ×2 (08:38→20:14)
[2017-03-27] MEDS: Lisinopril 5 MG TAB PO SCH (08:38)
[2017-03-27] MEDS: rOPINIRole HCl 0.5 MG TAB PO SCH ×2 (08:39→20:15)
[2017-03-27] MEDS: HYDROcodone/Acetaminophen 7.5/325 mg Tablet PO PRN ×2 (08:39→20:18)
[2017-03-27] MEDS: Melatonin 3 MG TAB PO SCH (20:14)
[2017-03-27] MEDS: Atorvastatin Calcium 10 MG TAB PO SCH (20:15)
[2017-03-28] MEDS: Levothyroxine Sodium 150 MCG TAB PO SCH (06:02)
[2017-03-28] MEDS: Mometasone/Formoterol 60 PUFF AER INH SCH ×2 (06:06→18:16)
[2017-03-28] MEDS: Ferrous Sulfate 325 MG TAB PO SCH (08:43)
[2017-03-28] MEDS: Famotidine 20 MG TAB PO SCH ×2 (08:43→20:56)
[2017-03-28] MEDS: Furosemide 40 MG TAB PO SCH (08:44)
[2017-03-28] MEDS: Escitalopram Oxalate 10 mg Tablet PO SCH (08:44)
[2017-03-28] MEDS: rOPINIRole HCl 0.5 MG TAB PO SCH ×2 (08:44→20:58)
[2017-03-28] MEDS: Potassium Chloride 10 MEQ TAB PO SCH (08:44)
[2017-03-28] MEDS: Carvedilol 25 MG TAB PO SCH ×2 (08:46→17:55)
[2017-03-28] MEDS: Pregabalin 100 MG CAP PO SCH ×2 (08:46→20:58)
[2017-03-28] MEDS: Lisinopril 5 MG TAB PO SCH (08:46)
[2017-03-28] MEDS: HYDROcodone/Acetaminophen 7.5/325 mg Tablet PO PRN ×2 (08:47→20:58)
[2017-03-28] MEDS: Insulin NPH/Reg Insulin Hm 300 UNITS/3 ML VIAL SC SCH ×2 (08:48→20:57)
[2017-03-28] MEDS: Atorvastatin Calcium 10 MG TAB PO SCH (20:56)
[2017-03-28] MEDS: Melatonin 3 MG TAB PO SCH (20:57)
[2017-03-29 05:09] LABS: #Eosinphils 0.3 thou/uL (0.0-0.7); #Lymphocytes 2.6 thou/uL (1.20-3.40); #Monocytes 0.7 thou/uL (0.11-0.59); #Neutrophils 4.1 thou/uL (1.40-6.50); %Basophils 0.5 % (0.0-1.0); %Eosinophils 4.5 % (0.0-10.0); %Lymphocytes 33.4 % (21.0-51.0); %Monocytes 8.7 % (0.0-10.0); %Neutrophils 52.9 % (42.0-75.0); Hemoglobin 9.9 g/dL (12.0-16.0); Mean Corpuscular HGB CONC 32.7 g/dL (32.0-36.0); Mean Corpuscular Hemoglobin 26.8 pg (27.0-31.0); Mean Corpuscular Volume 81.8 fl (81.0-99.0); Mean Platelet Volume 7.2 fL (7.4-10.4); Platelet Count 248 thou/uL (130-400); RBC Distribution Width 12.3 % (11.5-14.5); Red Blood Cell (RBC) Count 3.69 mill/uL (4.20-5.40); White Blood Cell (WBC) Count 7.7 thou/uL (4.8-10.8)
[2017-03-29] MEDS: Mometasone/Formoterol 60 PUFF AER INH SCH ×2 (05:21→17:58)
[2017-03-29] MEDS: Levothyroxine Sodium 150 MCG TAB PO SCH (05:21)
[2017-03-29 05:28] LABS: Anion Gap 12 mmol/L (10-20); BUN (Urea Nitrogen) 27 mg/dL (9.8-20.1); Calc. Creatinine Clearance 102 mL/min (70-130); Calcium 8.9 mg/dL (7.8-10.44); Carbon Dioxide 28 mmol/L (23-31); Chloride 103 mmol/L (98-107); Estimated GFR-MDRD 59; Glucose 180 mg/dL (83-110); Sodium 139 mmol/L (136-145)
[2017-03-29] MEDS: Famotidine 20 MG TAB PO SCH ×2 (08:13→20:30)
[2017-03-29] MEDS: Carvedilol 25 MG TAB PO SCH ×2 (08:14→17:58)
[2017-03-29] MEDS: Ferrous Sulfate 325 MG TAB PO SCH (08:14)
[2017-03-29] MEDS: Furosemide 40 MG TAB PO SCH (08:14)
[2017-03-29] MEDS: rOPINIRole HCl 0.5 MG TAB PO SCH ×2 (08:14→20:38)
[2017-03-29] MEDS: Lisinopril 5 MG TAB PO SCH (08:14)
[2017-03-29] MEDS: Potassium Chloride 10 MEQ TAB PO SCH (08:14)
[2017-03-29] MEDS: Escitalopram Oxalate 10 mg Tablet PO SCH (08:14)
[2017-03-29] MEDS: Pregabalin 100 MG CAP PO SCH ×2 (08:15→20:31)
[2017-03-29] MEDS: HYDROcodone/Acetaminophen 7.5/325 mg Tablet PO PRN ×2 (08:16→20:32)
[2017-03-29] MEDS: Insulin NPH/Reg Insulin Hm 300 UNITS/3 ML VIAL SC SCH ×2 (08:25→20:31)
[2017-03-29] MEDS: Atorvastatin Calcium 10 MG TAB PO SCH (20:30)
[2017-03-29] MEDS: Melatonin 3 MG TAB PO SCH (20:31)
[2017-03-30] MEDS: Levothyroxine Sodium 150 MCG TAB PO SCH (06:04)
[2017-03-30] MEDS: Mometasone/Formoterol 60 PUFF AER INH SCH ×2 (06:04→17:51)
[2017-03-30] MEDS: Potassium Chloride 10 MEQ TAB PO SCH (08:17)
[2017-03-30] MEDS: Carvedilol 25 MG TAB PO SCH ×2 (08:17→16:52)
[2017-03-30] MEDS: Ferrous Sulfate 325 MG TAB PO SCH (08:17)
[2017-03-30] MEDS: Famotidine 20 MG TAB PO SCH ×2 (08:20→20:56)
[2017-03-30] MEDS: Lisinopril 5 MG TAB PO SCH (08:20)
[2017-03-30] MEDS: Furosemide 40 MG TAB PO SCH (08:20)
[2017-03-30] MEDS: Insulin NPH/Reg Insulin Hm 300 UNITS/3 ML VIAL SC SCH ×2 (08:20→20:58)
[2017-03-30] MEDS: Escitalopram Oxalate 10 mg Tablet PO SCH (08:20)
[2017-03-30] MEDS: Pregabalin 100 MG CAP PO SCH ×2 (08:21→20:57)
[2017-03-30] MEDS: traMADol HCl 50 MG TAB PO PRN (08:22)
[2017-03-30] MEDS: rOPINIRole HCl 0.5 MG TAB PO SCH ×2 (08:22→20:56)
[2017-03-30] MEDS: HumaLOG 300 UNITS/3 ML VIAL SC PRN (11:26)
[2017-03-30] MEDS: Atorvastatin Calcium 10 MG TAB PO SCH (20:56)
[2017-03-30] MEDS: Melatonin 3 MG TAB PO SCH (20:56)
[2017-03-31] MEDS: Mometasone/Formoterol 60 PUFF AER INH SCH ×2 (05:28→17:32)
[2017-03-31] MEDS: Levothyroxine Sodium 150 MCG TAB PO SCH (05:28)
[2017-03-31] MEDS: Potassium Chloride 10 MEQ TAB PO SCH (08:19)
[2017-03-31] MEDS: Ferrous Sulfate 325 MG TAB PO SCH (08:19)
[2017-03-31] MEDS: Carvedilol 25 MG TAB PO SCH ×2 (08:19→16:03)
[2017-03-31] MEDS: Escitalopram Oxalate 10 mg Tablet PO SCH (08:20)
[2017-03-31] MEDS: Insulin NPH/Reg Insulin Hm 300 UNITS/3 ML VIAL SC SCH ×2 (08:20→21:09)
[2017-03-31] MEDS: Famotidine 20 MG TAB PO SCH ×2 (08:20→21:08)
[2017-03-31] MEDS: Furosemide 40 MG TAB PO SCH (08:20)
[2017-03-31] MEDS: Pregabalin 100 MG CAP PO SCH ×2 (08:21→21:08)
[2017-03-31] MEDS: Lisinopril 5 MG TAB PO SCH (08:21)
[2017-03-31] MEDS: rOPINIRole HCl 0.5 MG TAB PO SCH ×2 (09:46→21:07)
[2017-03-31] MEDS: traMADol HCl 50 MG TAB PO PRN (10:00)
[2017-03-31] MEDS: Acetaminophen 500 MG TAB PO PRN (10:00)
[2017-03-31] MEDS: HumaLOG 300 UNITS/3 ML VIAL SC PRN ×2 (11:06→16:04)
[2017-03-31] MEDS: Melatonin 3 MG TAB PO SCH (21:07)
[2017-03-31] MEDS: Atorvastatin Calcium 10 MG TAB PO SCH (21:08)
[2017-04-01] MEDS: HYDROcodone/Acetaminophen 7.5/325 mg Tablet PO PRN (01:38)
[2017-04-01] MEDS: Mometasone/Formoterol 60 PUFF AER INH SCH ×2 (05:35→17:53)
[2017-04-01] MEDS: Levothyroxine Sodium 150 MCG TAB PO SCH (05:35)
[2017-04-01 05:46] VITALS: BMI 52.3
[2017-04-01] MEDS: Carvedilol 25 MG TAB PO SCH ×2 (08:16→16:53)
[2017-04-01] MEDS: Ferrous Sulfate 325 MG TAB PO SCH (08:16)
[2017-04-01] MEDS: Potassium Chloride 10 MEQ TAB PO SCH (08:17)
[2017-04-01] MEDS: Insulin NPH/Reg Insulin Hm 300 UNITS/3 ML VIAL SC SCH ×2 (08:18→21:06)
[2017-04-01] MEDS: Furosemide 40 MG TAB PO SCH (08:18)
[2017-04-01] MEDS: Famotidine 20 MG TAB PO SCH ×2 (08:18→21:05)
[2017-04-01] MEDS: Escitalopram Oxalate 10 mg Tablet PO SCH (08:18)
[2017-04-01] MEDS: Pregabalin 100 MG CAP PO SCH ×2 (08:19→21:05)
[2017-04-01] MEDS: Lisinopril 5 MG TAB PO SCH (08:19)
[2017-04-01] MEDS: traMADol HCl 50 MG TAB PO PRN (08:20)
[2017-04-01] MEDS: rOPINIRole HCl 0.5 MG TAB PO SCH ×2 (08:20→21:04)
[2017-04-01] MEDS: Acetaminophen 500 MG TAB PO PRN (08:21)
[2017-04-01] MEDS: HumaLOG 300 UNITS/3 ML VIAL SC PRN (16:53)
[2017-04-01] MEDS: Melatonin 3 MG TAB PO SCH (21:04)
[2017-04-01] MEDS: Atorvastatin Calcium 10 MG TAB PO SCH (21:05)
[2017-04-02] MEDS: HYDROcodone/Acetaminophen 7.5/325 mg Tablet PO PRN ×3 (00:40→20:48)
[2017-04-02] MEDS: Levothyroxine Sodium 150 MCG TAB PO SCH (05:45)
[2017-04-02] MEDS: Mometasone/Formoterol 60 PUFF AER INH SCH ×2 (05:45→17:17)
[2017-04-02] MEDS: HumaLOG 300 UNITS/3 ML VIAL SC PRN ×4 (05:53→20:50)
[2017-04-02] MEDS: Potassium Chloride 10 MEQ TAB PO SCH (08:00)
[2017-04-02] MEDS: Ferrous Sulfate 325 MG TAB PO SCH (08:02)
[2017-04-02] MEDS: Insulin NPH/Reg Insulin Hm 300 UNITS/3 ML VIAL SC SCH ×2 (09:59→20:49)
[2017-04-02] MEDS: Furosemide 40 MG TAB PO SCH (10:00)
[2017-04-02] MEDS: Lisinopril 5 MG TAB PO SCH (10:00)
[2017-04-02] MEDS: Famotidine 20 MG TAB PO SCH ×2 (10:01→20:47)
[2017-04-02] MEDS: rOPINIRole HCl 0.5 MG TAB PO SCH ×2 (10:01→20:48)
[2017-04-02] MEDS: Escitalopram Oxalate 10 mg Tablet PO SCH (10:01)
[2017-04-02] MEDS: Carvedilol 25 MG TAB PO SCH ×2 (10:01→17:16)
[2017-04-02] MEDS: Pregabalin 100 MG CAP PO SCH ×2 (10:03→20:51)
[2017-04-02] MEDS: Atorvastatin Calcium 10 MG TAB PO SCH (20:47)
[2017-04-02] MEDS: Melatonin 3 MG TAB PO SCH (20:48)
[2017-04-03] MEDS: Mometasone/Formoterol 60 PUFF AER INH SCH ×2 (05:55→17:31)
[2017-04-03] MEDS: Levothyroxine Sodium 150 MCG TAB PO SCH (05:55)
[2017-04-03] MEDS: Insulin NPH/Reg Insulin Hm 300 UNITS/3 ML VIAL SC SCH ×2 (08:36→20:21)
[2017-04-03] MEDS: Potassium Chloride 10 MEQ TAB PO SCH (08:37)
[2017-04-03] MEDS: Escitalopram Oxalate 10 mg Tablet PO SCH (08:37)
[2017-04-03] MEDS: Carvedilol 25 MG TAB PO SCH ×2 (08:37→17:31)
[2017-04-03] MEDS: Pregabalin 100 MG CAP PO SCH ×2 (08:37→20:22)
[2017-04-03] MEDS: Furosemide 40 MG TAB PO SCH (08:37)
[2017-04-03] MEDS: Lisinopril 5 MG TAB PO SCH (08:38)
[2017-04-03] MEDS: Famotidine 20 MG TAB PO SCH ×2 (08:39→20:20)
[2017-04-03] MEDS: Ferrous Sulfate 325 MG TAB PO SCH (08:39)
[2017-04-03] MEDS: rOPINIRole HCl 0.5 MG TAB PO SCH ×2 (08:39→20:25)
[2017-04-03] MEDS: Atorvastatin Calcium 10 MG TAB PO SCH (20:20)
[2017-04-03] MEDS: Melatonin 3 MG TAB PO SCH (20:21)
[2017-04-03] MEDS: HYDROcodone/Acetaminophen 7.5/325 mg Tablet PO PRN (20:25)
[2017-04-03] MEDS: HumaLOG 300 UNITS/3 ML VIAL SC PRN (20:26)
[2017-04-04] MEDS: Levothyroxine Sodium 150 MCG TAB PO SCH (05:11)
[2017-04-04] MEDS: Mometasone/Formoterol 60 PUFF AER INH SCH ×2 (05:11→17:51)
[2017-04-04] MEDS: Ferrous Sulfate 325 MG TAB PO SCH (08:11)
[2017-04-04] MEDS: Carvedilol 25 MG TAB PO SCH ×2 (08:11→16:57)
[2017-04-04] MEDS: Potassium Chloride 10 MEQ TAB PO SCH (08:11)
[2017-04-04] MEDS: Escitalopram Oxalate 10 mg Tablet PO SCH (08:13)
[2017-04-04] MEDS: Famotidine 20 MG TAB PO SCH ×2 (08:13→20:18)
[2017-04-04] MEDS: Furosemide 40 MG TAB PO SCH (08:14)
[2017-04-04] MEDS: Insulin NPH/Reg Insulin Hm 300 UNITS/3 ML VIAL SC SCH ×2 (08:15→20:18)
[2017-04-04] MEDS: Lisinopril 5 MG TAB PO SCH (08:15)
[2017-04-04] MEDS: Pregabalin 100 MG CAP PO SCH ×2 (08:15→20:18)
[2017-04-04] MEDS: rOPINIRole HCl 0.5 MG TAB PO SCH ×2 (08:16→20:19)
[2017-04-04] MEDS: Acetaminophen 500 MG TAB PO PRN ×2 (08:16→20:20)
[2017-04-04] MEDS: traMADol HCl 50 MG TAB PO PRN ×2 (08:17→20:19)
[2017-04-04] MEDS: HumaLOG 300 UNITS/3 ML VIAL SC PRN ×2 (12:48→20:20)
[2017-04-04] MEDS: Atorvastatin Calcium 10 MG TAB PO SCH (20:17)
[2017-04-04] MEDS: Melatonin 3 MG TAB PO SCH (20:18)
[2017-04-05] MEDS: Levothyroxine Sodium 150 MCG TAB PO SCH (05:35)
[2017-04-05] MEDS: HumaLOG 300 UNITS/3 ML VIAL SC PRN (05:36)
[2017-04-05] MEDS: Mometasone/Formoterol 60 PUFF AER INH SCH ×2 (05:36→17:42)
[2017-04-05] MEDS: Carvedilol 25 MG TAB PO SCH ×2 (08:26→16:17)
[2017-04-05] MEDS: Ferrous Sulfate 325 MG TAB PO SCH (08:26)
[2017-04-05] MEDS: Potassium Chloride 10 MEQ TAB PO SCH (08:26)
[2017-04-05] MEDS: Insulin NPH/Reg Insulin Hm 300 UNITS/3 ML VIAL SC SCH ×2 (08:27→20:59)
[2017-04-05] MEDS: Famotidine 20 MG TAB PO SCH ×2 (08:27→20:56)
[2017-04-05] MEDS: Escitalopram Oxalate 10 mg Tablet PO SCH (08:27)
[2017-04-05] MEDS: Furosemide 40 MG TAB PO SCH (08:27)
[2017-04-05] MEDS: Pregabalin 100 MG CAP PO SCH ×2 (08:28→20:56)
[2017-04-05] MEDS: Lisinopril 5 MG TAB PO SCH (08:28)
[2017-04-05] MEDS: rOPINIRole HCl 0.5 MG TAB PO SCH ×2 (08:29→20:56)
[2017-04-05] MEDS: traMADol HCl 50 MG TAB PO PRN ×2 (08:29→17:45)
[2017-04-05] MEDS: Acetaminophen 500 MG TAB PO PRN ×2 (08:30→17:45)
[2017-04-05] MEDS: Naproxen 500 MG TAB PO SCH (20:55)
[2017-04-05] MEDS: Melatonin 3 MG TAB PO SCH (20:55)
[2017-04-05] MEDS: Atorvastatin Calcium 10 MG TAB PO SCH (20:56)
[2017-04-06] MEDS: Levothyroxine Sodium 150 MCG TAB PO SCH (05:14)
[2017-04-06] MEDS: Mometasone/Formoterol 60 PUFF AER INH SCH ×2 (06:00→18:26)
[2017-04-06] MEDS: Potassium Chloride 10 MEQ TAB PO SCH (07:55)
[2017-04-06] MEDS: Carvedilol 25 MG TAB PO SCH ×2 (07:56→17:00)
[2017-04-06] MEDS: Famotidine 20 MG TAB PO SCH ×2 (09:54→20:42)
[2017-04-06] MEDS: rOPINIRole HCl 0.5 MG TAB PO SCH ×2 (09:54→20:42)
[2017-04-06] MEDS: Escitalopram Oxalate 10 mg Tablet PO SCH (09:54)
[2017-04-06] MEDS: Acetaminophen 500 MG TAB PO PRN (09:54)
[2017-04-06] MEDS: Naproxen 500 MG TAB PO SCH ×2 (09:54→20:42)
[2017-04-06] MEDS: Pregabalin 100 MG CAP PO SCH ×2 (09:55→20:42)
[2017-04-06] MEDS: Furosemide 40 MG TAB PO SCH (09:55)
[2017-04-06] MEDS: Ferrous Sulfate 325 MG TAB PO SCH (09:55)
[2017-04-06] MEDS: Lisinopril 5 MG TAB PO SCH (09:56)
[2017-04-06] MEDS: Insulin NPH/Reg Insulin Hm 300 UNITS/3 ML VIAL SC SCH ×2 (09:57→20:44)
[2017-04-06] MEDS: Melatonin 3 MG TAB PO SCH (20:41)
[2017-04-06] MEDS: Atorvastatin Calcium 10 MG TAB PO SCH (20:42)
[2017-04-06] MEDS: HYDROcodone/Acetaminophen 7.5/325 mg Tablet PO PRN (20:43)
[2017-04-07] MEDS: Mometasone/Formoterol 60 PUFF AER INH SCH ×2 (05:36→17:21)
[2017-04-07] MEDS: Levothyroxine Sodium 150 MCG TAB PO SCH (05:37)
[2017-04-07] MEDS: Acetaminophen 500 MG TAB PO PRN ×2 (08:28→13:56)
[2017-04-07] MEDS: Escitalopram Oxalate 10 mg Tablet PO SCH (08:28)
[2017-04-07] MEDS: Carvedilol 25 MG TAB PO SCH ×2 (08:28→17:21)
[2017-04-07] MEDS: rOPINIRole HCl 0.5 MG TAB PO SCH ×2 (08:28→20:31)
[2017-04-07] MEDS: Ferrous Sulfate 325 MG TAB PO SCH (08:29)
[2017-04-07] MEDS: Potassium Chloride 10 MEQ TAB PO SCH (08:29)
[2017-04-07] MEDS: Naproxen 500 MG TAB PO SCH ×2 (08:29→20:30)
[2017-04-07] MEDS: Furosemide 40 MG TAB PO SCH (08:30)
[2017-04-07] MEDS: Lisinopril 5 MG TAB PO SCH (08:30)
[2017-04-07] MEDS: Famotidine 20 MG TAB PO SCH ×2 (08:30→20:31)
[2017-04-07] MEDS: Pregabalin 100 MG CAP PO SCH ×2 (08:30→20:29)
[2017-04-07] MEDS: Insulin NPH/Reg Insulin Hm 300 UNITS/3 ML VIAL SC SCH ×2 (08:32→20:28)
[2017-04-07] MEDS: traMADol HCl 50 MG TAB PO PRN ×2 (08:38→13:56)
[2017-04-07] MEDS: HumaLOG 300 UNITS/3 ML VIAL SC PRN (11:46)
[2017-04-07] MEDS: Nystatin Cream 15 GM TUBE TOP SCH (20:29)
[2017-04-07] MEDS: Atorvastatin Calcium 10 MG TAB PO SCH (20:30)
[2017-04-07] MEDS: Melatonin 3 MG TAB PO SCH (20:30)
[2017-04-08] MEDS: Levothyroxine Sodium 150 MCG TAB PO SCH (05:42)
[2017-04-08] MEDS: Mometasone/Formoterol 60 PUFF AER INH SCH ×2 (05:43→17:51)
[2017-04-08] MEDS: Carvedilol 25 MG TAB PO SCH ×2 (08:01→17:51)
[2017-04-08] MEDS: Potassium Chloride 10 MEQ TAB PO SCH (08:02)
[2017-04-08] MEDS: Ferrous Sulfate 325 MG TAB PO SCH (08:02)
[2017-04-08] MEDS: Famotidine 20 MG TAB PO SCH ×2 (09:02→20:45)
[2017-04-08] MEDS: Escitalopram Oxalate 10 mg Tablet PO SCH (09:02)
[2017-04-08] MEDS: Lisinopril 5 MG TAB PO SCH (09:02)
[2017-04-08] MEDS: Pregabalin 100 MG CAP PO SCH ×2 (09:04→20:43)
[2017-04-08] MEDS: rOPINIRole HCl 0.5 MG TAB PO SCH ×2 (09:04→20:43)
[2017-04-08] MEDS: Acetaminophen 500 MG TAB PO PRN (09:04)
[2017-04-08] MEDS: Naproxen 500 MG TAB PO SCH ×2 (09:04→20:44)
[2017-04-08] MEDS: Furosemide 40 MG TAB PO SCH (09:04)
[2017-04-08] MEDS: traMADol HCl 50 MG TAB PO PRN (09:09)
[2017-04-08] MEDS: Insulin NPH/Reg Insulin Hm 300 UNITS/3 ML VIAL SC SCH ×2 (09:09→20:42)
[2017-04-08] MEDS: Nystatin Cream 15 GM TUBE TOP SCH ×2 (09:41→20:43)
[2017-04-08] MEDS: HumaLOG 300 UNITS/3 ML VIAL SC PRN (11:59)
[2017-04-08] MEDS: Atorvastatin Calcium 10 MG TAB PO SCH (20:44)
[2017-04-08] MEDS: Melatonin 3 MG TAB PO SCH (20:44)
[2017-04-09] MEDS: Levothyroxine Sodium 150 MCG TAB PO SCH (05:40)
[2017-04-09] MEDS: Mometasone/Formoterol 60 PUFF AER INH SCH ×2 (05:40→17:56)
[2017-04-09] MEDS: Potassium Chloride 10 MEQ TAB PO SCH (08:18)
[2017-04-09] MEDS: Carvedilol 25 MG TAB PO SCH ×2 (08:19→16:48)
[2017-04-09] MEDS: Ferrous Sulfate 325 MG TAB PO SCH (08:19)
[2017-04-09] MEDS: Acetaminophen 500 MG TAB PO PRN ×2 (08:19)
[2017-04-09] MEDS: traMADol HCl 50 MG TAB PO PRN ×2 (08:19)
[2017-04-09] MEDS: Escitalopram Oxalate 10 mg Tablet PO SCH (08:22)
[2017-04-09] MEDS: Naproxen 500 MG TAB PO SCH ×2 (08:22→21:27)
[2017-04-09] MEDS: Furosemide 40 MG TAB PO SCH (08:22)
[2017-04-09] MEDS: Famotidine 20 MG TAB PO SCH ×2 (08:22→21:28)
[2017-04-09] MEDS: rOPINIRole HCl 0.5 MG TAB PO SCH ×2 (08:22→21:27)
[2017-04-09] MEDS: Pregabalin 100 MG CAP PO SCH ×2 (08:23→21:26)
[2017-04-09] MEDS: Lisinopril 5 MG TAB PO SCH (08:23)
[2017-04-09] MEDS: Nystatin Cream 15 GM TUBE TOP SCH ×2 (08:29→21:24)
[2017-04-09] MEDS: Insulin NPH/Reg Insulin Hm 300 UNITS/3 ML VIAL SC SCH ×2 (08:59→21:24)
[2017-04-09] MEDS: HumaLOG 300 UNITS/3 ML VIAL SC PRN (11:36)
[2017-04-09] MEDS: HYDROcodone/Acetaminophen 7.5/325 mg Tablet PO PRN (11:41)
[2017-04-09] MEDS: Melatonin 3 MG TAB PO SCH (21:25)
[2017-04-09] MEDS: Atorvastatin Calcium 10 MG TAB PO SCH (21:27)
[2017-04-10] MEDS: Levothyroxine Sodium 150 MCG TAB PO SCH (05:37)
[2017-04-10] MEDS: Mometasone/Formoterol 60 PUFF AER INH SCH ×2 (05:37→17:43)
[2017-04-10 05:39] LABS: #Basophils 0.1 thou/uL (0.0-0.2); #Eosinphils 0.5 thou/uL (0.0-0.7); #Lymphocytes 2.4 thou/uL (1.20-3.40); #Monocytes 0.8 thou/uL (0.11-0.59); #Neutrophils 4.5 thou/uL (1.40-6.50); %Basophils 1.1 % (0.0-1.0); %Eosinophils 5.9 % (0.0-10.0); %Lymphocytes 28.8 % (21.0-51.0); %Monocytes 9.8 % (0.0-10.0); %Neutrophils 54.4 % (42.0-75.0); Hemoglobin 9.6 g/dL (12.0-16.0); Mean Corpuscular HGB CONC 32.5 g/dL (32.0-36.0); Mean Corpuscular Hemoglobin 26.7 pg (27.0-31.0); Mean Platelet Volume 7.9 fL (7.4-10.4); Platelet Count 206 thou/uL (130-400); RBC Distribution Width 12.5 % (11.5-14.5); Red Blood Cell (RBC) Count 3.61 mill/uL (4.20-5.40); White Blood Cell (WBC) Count 8.3 thou/uL (4.8-10.8)
[2017-04-10 05:44] LABS: Anion Gap 13 mmol/L (10-20); BUN (Urea Nitrogen) 26 mg/dL (9.8-20.1); Calc. Creatinine Clearance 116 mL/min (70-130); Calcium 8.9 mg/dL (7.8-10.44); Carbon Dioxide 28 mmol/L (23-31); Chloride 102 mmol/L (98-107); Estimated GFR-MDRD 67; Glucose 136 mg/dL (83-110); Sodium 139 mmol/L (136-145)
[2017-04-10] MEDS: Ferrous Sulfate 325 MG TAB PO SCH (08:25)
[2017-04-10] MEDS: Carvedilol 25 MG TAB PO SCH ×2 (08:25→16:30)
[2017-04-10] MEDS: Escitalopram Oxalate 10 mg Tablet PO SCH (08:26)
[2017-04-10] MEDS: Famotidine 20 MG TAB PO SCH ×2 (08:26→20:06)
[2017-04-10] MEDS: Potassium Chloride 10 MEQ TAB PO SCH (08:26)
[2017-04-10] MEDS: Furosemide 40 MG TAB PO SCH (08:27)
[2017-04-10] MEDS: Lisinopril 5 MG TAB PO SCH (08:27)
[2017-04-10] MEDS: Insulin NPH/Reg Insulin Hm 300 UNITS/3 ML VIAL SC SCH ×2 (08:27→20:05)
[2017-04-10] MEDS: Naproxen 500 MG TAB PO SCH ×2 (08:27→20:06)
[2017-04-10] MEDS: Pregabalin 100 MG CAP PO SCH ×2 (08:28→20:07)
[2017-04-10] MEDS: Nystatin Cream 15 GM TUBE TOP SCH ×2 (08:28→20:06)
[2017-04-10] MEDS: rOPINIRole HCl 0.5 MG TAB PO SCH ×2 (08:29→20:07)
[2017-04-10] MEDS ORDERED: traMADol HCl 50 MG TAB PO PRN (12:48)
[2017-04-10 19:23] VITALS: TEMP 97.9
[2017-04-10] MEDS: HumaLOG 300 UNITS/3 ML VIAL SC PRN (20:04)
[2017-04-10] MEDS: Atorvastatin Calcium 10 MG TAB PO SCH (20:06)
[2017-04-10] MEDS: Melatonin 3 MG TAB PO SCH (20:06)
[2017-04-11] MEDS: Mometasone/Formoterol 60 PUFF AER INH SCH (05:04)
[2017-04-11] MEDS: Levothyroxine Sodium 150 MCG TAB PO SCH (05:04)
[2017-04-11] MEDS: Acetaminophen 500 MG TAB PO PRN (06:00)
[2017-04-11] MEDS: rOPINIRole HCl 0.5 MG TAB PO SCH (08:36)
[2017-04-11] MEDS: Carvedilol 25 MG TAB PO SCH (08:36)
[2017-04-11] MEDS: Naproxen 500 MG TAB PO SCH (08:37)
[2017-04-11] MEDS: Escitalopram Oxalate 10 mg Tablet PO SCH (08:37)
[2017-04-11] MEDS: Lisinopril 5 MG TAB PO SCH (08:37)
[2017-04-11] MEDS: Furosemide 40 MG TAB PO SCH (08:37)
[2017-04-11] MEDS: Famotidine 20 MG TAB PO SCH (08:37)
[2017-04-11] MEDS: Ferrous Sulfate 325 MG TAB PO SCH (08:37)
[2017-04-11] MEDS: Potassium Chloride 10 MEQ TAB PO SCH (08:38)
[2017-04-11] MEDS: Nystatin Cream 15 GM TUBE TOP SCH (08:38)
[2017-04-11] MEDS: Pregabalin 100 MG CAP PO SCH (08:38)
[2017-04-11] MEDS: Insulin NPH/Reg Insulin Hm 300 UNITS/3 ML VIAL SC SCH (08:43)
[2017-04-11 10:55] VITALS: BP 165/76
[2017-04-11] MEDS: HumaLOG 300 UNITS/3 ML VIAL SC PRN (11:57)
== END 2017-04-11 14:40 | disposition home health service (06) | DRG 560 ==
LOC: NAV ACUTE 17:16
PROVIDERS: ADMIT Internal Medicine; ATTEND Internal Medicine
DX: Z47.1 Aftercare following joint replacement surgery (principal); Z68.43 Body mass index [BMI] 50.0-59.9, adult; E11.42 Type 2 diabetes mellitus with diabetic polyneuropathy; E11.65 Type 2 diabetes mellitus with hyperglycemia; R13.10 Dysphagia, unspecified; J44.9 Chronic obstructive pulmonary disease, unspecified; Z86.73 Personal history of transient ischemic attack (TIA), and cerebral infarction without residual deficits; M19.011 Primary osteoarthritis, right shoulder; G93.89 Other specified disorders of brain; E66.01 Morbid (severe) obesity due to excess calories; Z96.611 Presence of right artificial shoulder joint; R47.81 Slurred speech; I10 Essential (primary) hypertension; E78.5 Hyperlipidemia, unspecified; E03.9 Hypothyroidism, unspecified; Z79.4 Long term (current) use of insulin; J45.909 Unspecified asthma, uncomplicated; Z91.19 Patient's noncompliance with other medical treatment and regimen; B35.4 Tinea corporis; M25.512 Pain in left shoulder; X50.9XXA Other and unspecified overexertion or strenuous movements or postures, initial encounter; F41.8 Other specified anxiety disorders
CPT/HCPCS: 36415; 36416; 71010; 80048; 82553; 82947; 83036; 84484; 85025; 87070; 87205; A4216; G8996-GN-CJ; G8997-GN-CJ; J1610

== ENCOUNTER 2018-01-01 11:15 | Emergency (ER) | payer MEDICARE, MEDICAID ==
[2018-01-01] MEDS ORDERED: Insulin Regular 300 UNITS/3 ML VIAL ONE (11:43)
[2018-01-01 12:00] LABS: #Basophils 0.1 thou/uL (0.0-0.2); #Eosinphils 0.2 thou/uL (0.0-0.7); #Lymphocytes 1.6 thou/uL (1.20-3.40); #Monocytes 0.5 thou/uL (0.11-0.59); #Neutrophils 4.6 thou/uL (1.40-6.50); %Basophils 0.8 % (0.0-1.0); %Eosinophils 2.2 % (0.0-10.0); %Lymphocytes 22.9 % (21.0-51.0); %Monocytes 7.4 % (0.0-10.0); %Neutrophils 66.6 % (42.0-75.0); Hemoglobin 11.6 g/dL (12.0-16.0); Mean Corpuscular HGB CONC 31.5 g/dL (32.0-36.0); Mean Corpuscular Hemoglobin 26.3 pg (27.0-31.0); Mean Corpuscular Volume 83.4 fl (81.0-99.0); Mean Platelet Volume 8.7 fL (7.4-10.4); Platelet Count 241 thou/uL (130-400); RBC Distribution Width 13.4 % (11.5-14.5); Red Blood Cell (RBC) Count 4.42 mill/uL (4.20-5.40); White Blood Cell (WBC) Count 6.9 thou/uL (4.8-10.8)
[2018-01-01] MEDS ORDERED: Lorazepam 2 MG/ML VIAL ONE (12:00)
[2018-01-01 12:02] LABS: Bilirubin Negative (Negative); Blood, Urine Negative (Negative); Clarity Clear (Clear); Glucose, Urine (Dipstick) 500 mg/dL (Negative); Leukocyte Negative (Negative); Nitrite Negative (Negative); Protein, Urine (Dipstick) Negative (Neg-Trace); Urobilinogen 0.2 mg/dL (0.2-1.0); pH, Urine 6.5 (5.0-9.0)
[2018-01-01 12:13] LABS: ALT (SGPT) 17 U/L (8-55); AST (SGOT) 17 U/L (5-34); Albumin 3.3 g/dL (3.4-4.8); Alkaline Phosphatase 88 U/L (40-150); Anion Gap 16 mmol/L (10-20); BUN (Urea Nitrogen) 25 mg/dL (9.8-20.1); Bilirubin, Total 0.3 mg/dL (0.2-1.2); CKMB 2.9 ng/mL (0-6.6); Calc. Creatinine Clearance 0 mL/min (70-130); Calcium 9.5 mg/dL (7.8-10.44); Carbon Dioxide 24 mmol/L (23-31); Chloride 94 mmol/L (98-107); Estimated GFR-MDRD 45; Globulin 3.5 g/dL (2.4-3.5); Magnesium 1.8 mg/dL (1.6-2.6); Phosphorus 3.5 mg/dL (2.3-4.7); Potassium 3.7 mmol/L (3.5-5.1); Protein, Total 6.8 g/dL (6.0-8.3); Sodium 130 mmol/L (136-145); Troponin I Less than 0.010 ng/mL (< 0.028)
[2018-01-01 12:17] LABS: Glucose 695 mg/dL (83-110)
[2018-01-01 12:21] LABS: pH (venous) 7.45 (7.35-7.45)
[2018-01-01 12:22] LABS: Base Excess 0.3 mEq/L (-2 - +2)
[2018-01-01 12:23] LABS: Hemoglobin (Hb) 13.7 g/dL (11.7-16.1)
[2018-01-01] MEDS ORDERED: diphenhydrAMINE 50 MG/ML VIAL ONE (12:27)
--- NOTE | 2018-01-01 12:35 | RAD ---
SINGLE VIEW OF THE CHEST: HISTORY: Controlled fall. The patient slid down the wall, to the floor, with weakness. High blood sugar. COMPARISON: 03/15/2017 FINDINGS: A single view of the chest shows a normal sized cardiomediastinal silhouette. There is no evidence o f consolidation, mass, or pleural effusion. The patient is status post right shoulder arthroplasty. IMPRESSION: No evidence of acute cardiopulmonary disease. POS: [facility]
== END 2018-01-01 13:25 | disposition short-term general hospital (02) ==
LOC: NAV ERS 11:15
DX: E11.65 Type 2 diabetes mellitus with hyperglycemia (principal); B37.2 Candidiasis of skin and nail; I10 Essential (primary) hypertension; E11.40 Type 2 diabetes mellitus with diabetic neuropathy, unspecified; E03.9 Hypothyroidism, unspecified; E66.9 Obesity, unspecified; F41.9 Anxiety disorder, unspecified; F32.9 Major depressive disorder, single episode, unspecified; G47.00 Insomnia, unspecified; Z79.82 Long term (current) use of aspirin; Z79.899 Other long term (current) drug therapy; Z79.891 Long term (current) use of opiate analgesic
CPT/HCPCS: 36416; 51702; 71045; 80053; 81003; 82010; 82553; 82805; 83735; 84100; 84484; 85025; 93005; 94760; 96361; 96374; 96375; 96376; J1200; J1815; J2060

== ENCOUNTER 2018-09-09 11:52 | Emergency (ER) | payer MEDICARE, MEDICAID ==
[2018-09-09] MEDS ORDERED: Cephalexin 250 MG CAP ONE (12:36)
== END 2018-09-09 12:42 | disposition home or self-care (01) ==
LOC: NAV ERS 11:52
DX: L03.011 Cellulitis of right finger (principal); E11.40 Type 2 diabetes mellitus with diabetic neuropathy, unspecified; E03.9 Hypothyroidism, unspecified; E66.9 Obesity, unspecified; I10 Essential (primary) hypertension; F41.9 Anxiety disorder, unspecified; F32.9 Major depressive disorder, single episode, unspecified; Z79.4 Long term (current) use of insulin; Z79.899 Other long term (current) drug therapy; Z79.891 Long term (current) use of opiate analgesic; Z79.82 Long term (current) use of aspirin
CPT/HCPCS: 99283

== ENCOUNTER 2018-11-24 16:55 | Emergency (ER) | payer MEDICARE, MEDICAID ==
[~2018-11-24 16:55] MED LIST: Iopamidol 370 76% 100 ML VIAL ONE
[2018-11-24 17:55] LABS: #Basophils 0.1 thou/uL (0.0-0.2); #Eosinphils 0.2 thou/uL (0.0-0.7); #Lymphocytes 2.3 thou/uL (1.20-3.40); #Monocytes 0.8 thou/uL (0.11-0.59); #Neutrophils 8.1 thou/uL (1.40-6.50); %Basophils 0.7 % (0.0-1.0); %Eosinophils 1.6 % (0.0-10.0); %Monocytes 7.3 % (0.0-10.0); %Neutrophils 70.4 % (42.0-75.0); Hemoglobin 12.8 g/dL (12.0-16.0); Mean Corpuscular HGB CONC 31.1 g/dL (32.0-36.0); Mean Corpuscular Volume 83.8 fL (78.0-98.0); Mean Platelet Volume 8.6 fL (7.4-10.4); Platelet Count 351 thou/uL (130-400); RBC Distribution Width 12.9 % (11.5-14.5); Red Blood Cell (RBC) Count 4.93 mill/uL (4.20-5.40); White Blood Cell (WBC) Count 11.5 thou/uL (4.8-10.8)
[2018-11-24 18:16] LABS: ALT (SGPT) 16 U/L (8-55); AST (SGOT) 20 U/L (5-34); Acetaminophen Less than 6.0 mcg/mL (10.0-30.0); Albumin 3.8 g/dL (3.4-4.8); Alcohol Less than 10 mg/dL (Less than 10); Alkaline Phosphatase 105 U/L (40-150); Anion Gap 19 mmol/L (10-20); BUN (Urea Nitrogen) 33 mg/dL (9.8-20.1); Bilirubin, Total 0.8 mg/dL (0.2-1.2); Calc. Creatinine Clearance 0 mL/min (70-130); Calcium 10.2 mg/dL (7.8-10.44); Carbon Dioxide 23 mmol/L (23-31); Chloride 97 mmol/L (98-107); Estimated GFR-MDRD 44; Globulin 4.2 g/dL (2.4-3.5); Glucose 369 mg/dL (83-110); Potassium 4.2 mmol/L (3.5-5.1); Salicylate Less than 8.0 mg/dL (15.0-30.0); Sodium 135 mmol/L (136-145)
--- NOTE | 2018-11-24 19:35 | CT ---
CT BRAIN: HISTORY: Trauma. COMPARISON: 01/01/2018 TECHNIQUE: Noncontrast enhanced CT images of the brain obtained. FINDINGS: Noncontrast enhanced CT images of the brain demonstrate some mild cortical atrophy and deep white mat ter ischemic changes. No evidence of acute intracranial masses, hemorrhages, strokes, or contusions seen. The ventricles are of normal size. There is a small left frontal inner table area of calcific ation, possibly representing an osteoma or calcified meningioma. This is unchanged since the 2018 ex am. IMPRESSION: No evidence of acute intracranial abnormality is seen. POS: [facility]
[2018-11-24] MEDS ORDERED: Sodium Chloride 0.9% 500 ML ONE (19:50)
[2018-11-24] MEDS ORDERED: traMADol HCl 50 MG TAB ONE (19:50)
--- NOTE | 2018-11-24 20:05 | CT ---
CT CERVICAL SPINE: HISTORY: Trauma. Neck pain. TECHNIQUE: Axial images are obtained with coronal and sagittal reconstructions. FINDINGS: Disk space height loss with anterior and posterior osteophytes seen at C4-C5, C5-C6, and C6-C7. This is compatible with changes of spondylosis. No evidence of acute cervical spine fracture is seen. IMPRESSION: Mid cervical changes of spondylosis. POS: [facility]
--- NOTE | 2018-11-24 20:08 | RAD ---
RIGHT HIP TWO VIEWS: HISTORY: Right hip pain. TECHNIQUE: AP and frogleg views of the right hip are obtained. FINDINGS: Two views of the right hip demonstrate no evidence of right hip fractures, subluxations, or bony lesi ons. IMPRESSION: Normal two views right hip. POS: [facility]
--- NOTE | 2018-11-24 20:09 | RAD ---
RIGHT KNEE FOUR VIEWS: HISTORY: Pain after trauma. COMPARISON: 07/15/2016 TECHNIQUE: AP, lateral, and both oblique views of the right knee are obtained. FINDINGS: Four views of the right knee demonstrate increasing joint space narrowing in the medial and lateral c ompartments of the right knee. Osteophytes are seen. Findings compatible with moderate to severe ri ght knee osteoarthritic changes. There are also osteophytes and degenerative changes seen in the anterior compartment. IMPRESSION: Tricompartmental osteoarthritis, right knee. POS: [facility]
--- NOTE | 2018-11-24 20:11 | CT ---
CT ABDOMEN AND PELVIS WITH CONTRAST: HISTORY: Fall. Abdominal pain. FINDINGS: Contrast enhanced CT images of the abdomen and pelvis demonstrate the lung bases to be unremarkable. No evidence of free intraperitoneal air or fluid seen. The liver, spleen, gallbladder, pancreas, ad renal glands, and kidneys are unremarkable. No dilated loops of small bowel or colon seen. A modera te amount of stool is seen in the colon. Atherosclerotic calcifications are seen in the abdominal aorta. Multilevel lumbar vacuum disk changes seen in the upper and lower lumbar spine. IMPRESSION: 1. No evidence of acute abdominal or pelvic pathology seen. 2. Incidentally noted small umbilical hernia is present. POS: [facility]
[2018-11-24] MEDS ORDERED: cloNIDine 0.2 MG TAB ONE (20:24)
[2018-11-24] MEDS ORDERED: Insulin Regular 300 UNITS/3 ML VIAL ONE (21:07)
== END 2018-11-24 21:56 | disposition home or self-care (01) ==
LOC: NAV ERS 16:55
DX: R29.6 Repeated falls (principal); M54.2 Cervicalgia; M25.561 Pain in right knee; E03.9 Hypothyroidism, unspecified; E11.40 Type 2 diabetes mellitus with diabetic neuropathy, unspecified; I10 Essential (primary) hypertension; E66.9 Obesity, unspecified; F41.9 Anxiety disorder, unspecified; F32.9 Major depressive disorder, single episode, unspecified; Z79.82 Long term (current) use of aspirin; Z79.4 Long term (current) use of insulin; Z79.891 Long term (current) use of opiate analgesic; Z79.899 Other long term (current) drug therapy
CPT/HCPCS: 36416; 70450; 72125; 74177; 80053; 80307; 82550; 83880; 84484; 85025; 93005; J1815; J7050; Q9967

== ENCOUNTER 2019-01-21 14:51 | Outpatient (CLI) | payer MEDICARE, MEDICAID ==
[2019-01-21 15:10] LABS: #Basophils 0.1 thou/uL (0.0-0.2); #Eosinphils 0.4 thou/uL (0.0-0.7); #Lymphocytes 2.5 thou/uL (1.20-3.40); #Monocytes 0.6 thou/uL (0.11-0.59); #Neutrophils 6.8 thou/uL (1.40-6.50); %Basophils 0.8 % (0.0-1.0); %Eosinophils 4.1 % (0.0-10.0); %Lymphocytes 24.3 % (21.0-51.0); %Monocytes 5.4 % (0.0-10.0); %Neutrophils 65.4 % (42.0-75.0); Hemoglobin 9.6 g/dL (12.0-16.0); Mean Corpuscular HGB CONC 30.7 g/dL (32.0-36.0); Mean Corpuscular Hemoglobin 25.9 pg (27.0-31.0); Mean Corpuscular Volume 84.5 fL (78.0-98.0); Mean Platelet Volume 8.3 fL (7.4-10.4); Platelet Count 309 thou/uL (130-400); RBC Distribution Width 12.8 % (11.5-14.5); Red Blood Cell (RBC) Count 3.69 mill/uL (4.20-5.40); White Blood Cell (WBC) Count 10.4 thou/uL (4.8-10.8)
[2019-01-21 15:25] LABS: ALT (SGPT) 14 U/L (8-55); AST (SGOT) 15 U/L (5-34); Albumin 3.7 g/dL (3.4-4.8); Alkaline Phosphatase 90 U/L (40-150); Anion Gap 18 mmol/L (10-20); BUN (Urea Nitrogen) 39 mg/dL (9.8-20.1); Bilirubin, Total 0.3 mg/dL (0.2-1.2); Calc. Creatinine Clearance 0 mL/min (70-130); Calcium 9.7 mg/dL (7.8-10.44); Carbon Dioxide 27 mmol/L (23-31); Chloride 98 mmol/L (98-107); Estimated GFR-MDRD 48; Globulin 3.2 g/dL (2.4-3.5); Glucose 114 mg/dL (83-110); Potassium 4.6 mmol/L (3.5-5.1); Protein, Total 6.9 g/dL (6.0-8.3); Sodium 138 mmol/L (136-145)
== END 2019-01-21 14:52 | disposition home or self-care (01) ==
LOC: NAV LAB 14:51
PROVIDERS: ATTEND Family Medicine
DX: E11.65 Type 2 diabetes mellitus with hyperglycemia (principal)
CPT/HCPCS: 80053; 85025